=== PATIENT | female | born 1990 | race African-American/Black ===

== ENCOUNTER 2019-03-07 14:18 | Emergency (ER) | payer SELFPAY ==
[~2019-03-07] VITALS: Ht 167.6 cm; Wt 77.6 kg
--- NOTE | 2019-03-07 14:30 | NUR ---
ED Nurse Note: patient walked into ED from home. patient states that she is on her period now when she had multiple urine test at home which came back positive. patient is alert awake x4 ambulatory, breathing unlabored and even.
--- NOTE | 2019-03-07 14:30 | NUR ---
ED Nurse Note: PATIENT WALKED INTO BECAUSE PATIENT IS HAVING A PERIOD FOR 3 DAYS, SHE DID URINE TEST FOR SEVERAL TIMES AND CAME BACK POSITIVE PATIENT IS ALERT AWAKE X4 AMBULATORY BREATHING EVEN AND UNLABORED.
--- NOTE | 2019-03-07 14:52 | NUR ---
ED Nurse Note: urine sent to lab.
[2019-03-07 15:30] LABS: BASOPHILS % (AUTO) 1.2 % (0.0-2.0); EOSINOPHILS % (AUTO) 0.8 % (0.0-3.0); HEMATOCRIT 40.3 % (37.0-47.0); HEMOGLOBIN 13.5 G/DL (12.0-16.0); LYMPHOCYTES % (AUTO) 25.6 % (20.0-45.0); MEAN CORPUSCULAR VOLUME 88 FL (80-99); MONOCYTES % (AUTO) 7.2 % (1.0-10.0); NEUTROPHILS % (AUTO) 65.2 % (45.0-75.0); PLATELET COUNT 172 K/UL (150-450); RED BLOOD COUNT 4.55 M/UL (4.20-5.40); RED CELL DISTRIBUTION WIDTH 11.9 % (11.6-14.8); WHITE BLOOD COUNT 4.9 K/UL (4.8-10.8)
--- NOTE | 2019-03-07 15:30 | NUR ---
ED Nurse Note: blood sent to lab
--- NOTE | 2019-03-07 15:32 | Emergency Room Report ---
History of Present Illness General Chief Complaint: Complications Source: Patient Present Illness HPI Pt. presents to the ED c/o vaginal bleeding: x 3 days, moderate amount like a period, however pt. states after spotting last week she was concerned due to change in amount and took multiple tests at home which were positive. pt. reports going through 3 super-absorbency tampons per day. She is . no abdominal pain, no N/V/F/C. Allergies: Coded Allergies: No Known Allergies (Unverified , 03/07/19) Patient History Past Medical History: see triage record Past Surgical History: none Pertinent Family History: none Last Menstrual Period: january Now: Yes : 1 Para: 0 Reviewed Nursing Documentation: PMH: Agreed; PSxH: Agreed Nursing Documentation-PMH Past Medical History: No Stated History Review of Systems All Other Systems: negative except mentioned in HPI Physical Exam Vital Signs Date Time Temp Pulse Resp B/P (MAP) Pulse Ox O2 Delivery O2 Flow Rate FiO2 03/07/19 14:25 97.9 86 20 108/71 98 Room Air Sp02 EP Interpretation: reviewed, normal General Appearance: no apparent distress, alert, GCS 15, non-toxic Head: normocephalic, atraumatic Eyes: bilateral eye normal inspection, bilateral eye PERRL ENT: hearing grossly normal, normal voice Neck: full range of motion Respiratory: lungs clear, normal breath sounds, speaking full sentences Cardiovascular #1: regular rate, rhythm Gastrointestinal: normal bowel sounds, non tender, soft, non-distended, no guarding Genitourinary: normal inspection, no CVA tenderness, deferred Musculoskeletal: back normal, gait/station normal, normal range of motion, non- tender Neurologic: alert, oriented x3, responsive, motor strength/tone normal, sensory intact, speech normal, grossly normal Psychiatric: judgement/insight normal Skin: normal color, no rash, warm/dry, well hydrated Medical Decision Making PA Attestation Dr. Vaughn is my supervising Physician whom patient management has been discussed with. Diagnostic Impression: Primary Impression: Bleeding in early Additional Impression: Threatened miscarriage in early ER Course Pt. presents to the ED c/o vaginal bleeding: x 3 days, moderate amount like a period, however pt. states after spotting last week she was concerned due to change in amount and took multiple tests at home which were positive. pt. reports going through 3 super-absorbency tampons per day. She is . no abdominal pain, no N/V/F/C. Ddx considered but are not limited to: Fibroid, ectopic , Fibroid, Spontaneous , Vital signs: are WNL, pt. is afebrile H&PE are most consistent with: Spotting during early ORDERS: -Urine hcg- Positive -serum Hcg Quant: 104 -UA: unremarkable - Blood/RH type and screen- AB POSITIVE -Pelvic US complete- NO visible , free fluid in the culd-de-sac ED INTERVENTIONS: None at this time. I discussed with this patient that serial Quant analysis needs to be performed as well as serial ultrasound in order to determine if she is having a miscarriage versus early . Missed follow-up within 72 hours with an OB /[facility]. She is given a copy of her US report to take with her for follow up. pt. given ED return precautions. DISCHARGE: At this time pt. is stable for d/c to home. Will provide printed patient care instructions, and any necessary prescriptions. Care plan and follow up instructions have been discussed with the patient prior to discharge. Labs Test 03/07/19 14:40 03/07/19 15:15 Urine Color Pale yellow Urine Appearance Clear Urine pH 5 (4.5-8.0) Urine Specific [place] 1.020 (1.005-1.035) Urine Protein Negative (NEGATIVE) Urine Glucose (UA) Negative (NEGATIVE) Urine Ketones Negative (NEGATIVE) Urine Blood 2+ (NEGATIVE) Urine Nitrite Negative (NEGATIVE) Urine Bilirubin Negative (NEGATIVE) Urine Urobilinogen Normal MG/DL (0.0-1.0) Urine Leukocyte Esterase Negative (NEGATIVE) Urine RBC 0-2 /HPF (0 - 2) Urine WBC 0-2 /HPF (0 - 2) Urine Squamous Epithelial Cells Few /LPF (NONE/OCC) Urine Bacteria Occasional /HPF (NONE) Urine HCG, Qualitative Positive (NEGATIVE) White Blood Count 4.9 K/UL (4.8-10.8) Red Blood Count 4.55 M/UL (4.20-5.40) Hemoglobin 13.5 G/DL (12.0-16.0) Hematocrit 40.3 % (37.0-47.0) Mean Corpuscular Volume 88 FL (80-99) Mean Corpuscular Hemoglobin 29.5 PG (27.0-31.0) Mean Corpuscular Hemoglobin Concent 33.4 G/DL (32.0-36.0) Red Cell Distribution Width 11.9 % (11.6-14.8) Platelet Count 172 K/UL (150-450) Mean Platelet Volume 8.1 FL (6.5-10.1) Neutrophils (%) (Auto) 65.2 % (45.0-75.0) Lymphocytes (%) (Auto) 25.6 % (20.0-45.0) Monocytes (%) (Auto) 7.2 % (1.0-10.0) Eosinophils (%) (Auto) 0.8 % (0.0-3.0) Basophils (%) (Auto) 1.2 % (0.0-2.0) Sodium Level 140 MMOL/L (136-145) Potassium Level 3.9 MMOL/L (3.5-5.1) Chloride Level 105 MMOL/L (98-107) Carbon Dioxide Level 27 MMOL/L (21-32) Anion Gap 9 mmol/L (5-15) Blood Urea Nitrogen 14 mg/dL (7-18) Creatinine 1.0 MG/DL (0.55-1.30) Estimat Glomerular Filtration Rate > 60 mL/min (>60) Glucose Level 91 MG/DL (74-106) Calcium Level 8.8 MG/DL (8.5-10.1) Total Bilirubin 1.1 MG/DL (0.2-1.0) Direct Bilirubin 0.2 MG/DL (0.0-0.3) Aspartate Amino Transf (AST/SGOT) 21 U/L (15-37) Alanine Aminotransferase (ALT/SGPT) 20 U/L (12-78) Alkaline Phosphatase 48 U/L (46-116) Total Protein 7.5 G/DL (6.4-8.2) Albumin 3.8 G/DL (3.4-5.0) Globulin 3.7 g/dL Albumin/Globulin Ratio 1.0 (1.0-2.7) Human Chorionic Gonadotropin, Quant 104 mIU/mL (1-6) CT/MRI/US Diagnostic Results CT/MRI/US Diagnostic Results : Imaging Test Ordered: US Pelvic Impression "Impression is retroverted uterus no intrauterine gestational sac adnexal mass demonstrated there is trace free fluid in the cul-de-sac of ovaries demonstrate normal flow on Doppler imaging. Until considerations include early spontaneous and ectopic recommend correlation with serial beta hCGs and follow-up sonography" ---Per official radiology report- Please see report for specific details. Last Vital Signs Date Time Temp Pulse Resp B/P (MAP) Pulse Ox O2 Delivery O2 Flow Rate FiO2 03/07/19 14:25 97.9 86 20 108/71 98 Room Air Disposition: HOME, SELF-CARE Condition: Stable Scripts Vit #91/Fe Fum/Fa/Dha ( + DHA COMBO PACK) 1 Each Combo..pkg 1 EACH PO DAILY, #1 PACK Prov: Hilda Malhotra 03/07/19 Referrals: NOT CHOSEN IPA/MD,REFERRING (PCP) Patient Instructions: Threatened Miscarriage Additional Instructions: Take medications as directed. Follow up with a OBGYN within 3 days, even if your symptoms have resolved. Return sooner to ED if new symptoms occur, or current symptoms become worse. - Please note that this Emergency Department Report was dictated using [employer] aide technology software, occasionally this can lead to erroneous entry secondary to interpretation by the dictation equipment. Hilda Malhotra Mar 07, 2019 15:32
[2019-03-07 15:39] LABS: ANION GAP 9 mmol/L (5-15); BLOOD UREA NITROGEN 14 mg/dL (7-18); CALCIUM 8.8 MG/DL (8.5-10.1); CARBON DIOXIDE 27 MMOL/L (21-32); CHLORIDE 105 MMOL/L (98-107); POTASSIUM 3.9 MMOL/L (3.5-5.1); SODIUM 140 MMOL/L (136-145)
[2019-03-07 15:49] LABS: ALANINE AMINOTRANSFERASE 20 U/L (12-78); ALBUMIN 3.8 G/DL (3.4-5.0); ALKALINE PHOSPHATASE 48 U/L (46-116); ASPARTATE AMINO TRANSFERASE 21 U/L (15-37); BILIRUBIN,TOTAL 1.1 MG/DL (0.2-1.0)
--- NOTE | 2019-03-07 15:52 | NUR ---
ED Nurse Note: patient went to u/s
[2019-03-07 15:56] LABS: BILIRUBIN,DIRECT 0.2 MG/DL (0.0-0.3)
--- NOTE | 2019-03-07 16:30 | NUR ---
ED Nurse Note: patient came back from u/s in stable conditon.
--- NOTE | 2019-03-07 16:46 | Diagnostic Imaging Report ---
Indication: Vaginal bleeding 4 days ago, positive test Technique: Transabdominal and transvaginal images. Doppler interrogation of the bilateral ovaries Comparison: none Findings: The uterus is retroverted, measures 5.3 cm length by 3.3 cm AP. The endometrium measures 5 mm thick. No intrauterine gestational sac is demonstrated. Upper endometrial contents are slightly heterogeneous. Some apparent motion of the upper endometrial contents is of uncertain significance. The right ovary measures 2.3 cm in length. The left ovary measures 2.6 cm in length. No adnexal mass demonstrated. There is trace free cul-de-sac fluid. Both ovaries demonstrate normal flow on Doppler imaging Impression: No intrauterine visualized. Differential considerations include very early intrauterine , spontaneous , ectopic . Recommend correlation with serial beta hCGs, follow-up sonography as clinically indicated Trace free cul-de-sac fluid, most likely physiologic
[2019-03-07 16:47] LABS: APPEARANCE,URINE CLEAR; BILIRUBIN, URINE NEGATIVE (NEGATIVE); COLOR,URINE PALE YELLOW; GLUCOSE, URINE (UA) NEGATIVE (NEGATIVE); KETONES,URINE NEGATIVE (NEGATIVE); LEUKOCYTE ESTERASE ,URINE NEGATIVE (NEGATIVE); NITRITE,URINE NEGATIVE (NEGATIVE); PH,URINE 5 (4.5-8.0); PROTEIN,URINE NEGATIVE (NEGATIVE); UROBILINOGEN,URINE NORMAL MG/DL (0.0-1.0)
[2019-03-07] MEDS ORDERED: PRENATAL + DHA1 EAC1 PO (17:25)
[2019-03-07 17:35] VITALS: BP 108/71
--- NOTE | 2019-03-07 17:40 | NUR ---
ER DISCHARGE NOTE: Patient is cleared to be discharged per ERMD, pt is aox4, on room air, with stable vital signs. pt was given dc and prescription instructions, pt was able to verbalize understanding TO FOLLOW UP WITH OBGYN IN THREE DAYS, pt id band removed without complications. pt is able to ambulate with steady gait. pt took all belongings.
== END 2019-03-07 17:45 | disposition home or self-care (01) ==
LOC: EMR 15:00
DX: O20.0 Threatened abortion (principal); Z3A.00 Weeks of gestation of pregnancy not specified
CPT/HCPCS: 36415; 76801; 76830; 80053; 81003; 81025; 82248; 84702; 85025; 86850; 86900; 86901; 99284